=== PATIENT | male | born 1985 | race Caucasian/White ===

== ENCOUNTER 2020-03-13 16:46 | Emergency (ER) | payer BC, OTHER ==
[~2020-03-13] VITALS: Ht 190.5 cm; Wt 152.0 kg
[2020-03-13] MEDS ORDERED: AZITHROMYCIN500 MG PO (18:36)
--- NOTE | 2020-03-13 18:38 | Emergency Department Note ---
History of Present Illnes History of Present Illness Chief Complaint: newants covid test because exposed 1 week ago to coworker who is covid + History of Present Illness This is a 34 year old male. was doing well prior to this. +st x3 days. 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 Any updates have been documented here. Past Medical History Recent Fever: No Clinical Suspicion of Infectio: No New/Unexplained Change in Ment: No Past Medical History: None Past Surgical History: None Social History Smoking Cessation: Never Smoker Alcohol Use: Occasional Any Illegal Drug Use: No TB Exposure/Symptoms: No Physically hurt or threatened: No Other Any Pre-Existing Lines (PICC,: No Is patient up to date on immun: Yes Last Flu: No Last Pneumovax: No Review of Systems Review of Systems Constitutional: Reports no symptoms EENTM: Reports as per HPI, Reports throat pain Cardiovascular: Reports no symptoms Respiratory: Reports no symptoms Gastrointestinal: Reports no symptoms Genitourinary: Reports no symptoms Musculoskeletal: Reports no symptoms Integumentary: Reports no symptoms Neurological: Reports no symptoms Psychological: Reports no symptoms Endocrine: Reports no symptoms Hematological/Lymphatic: Reports no symptoms Review of other systems: All other systems negative Physical Exam Related Data Allergies: Coded Allergies: No Known Allergies (Unverified , 03/13/20) Triage Vital Signs Vital Signs Date Time Temp Pulse Resp B/P (MAP) Pulse Ox O2 Delivery O2 Flow Rate FiO2 03/13/20 17:16 97.1 76 20 148/97 98 Vital signs reviewed: Yes Physical Exam CONSTITUTIONAL Constitutional: Present well-developed, Present well-nourished HENT HENT: Present normocephalic, Present atraumatic, Present nose normal, Present erythema HENT L/R: Present left ext ear normal, Present right ext ear normal EYES Eyes: Reports PERRL, Reports conjunctivae normal NECK Neck: Present ROM normal PULMONARY Pulmonary: Present effort normal, Present breath sounds normal CARDIOVASCULAR Cardiovascular: Present regular rhythm, Present heart sounds normal, Present capillary refill normal, Present normal rate GASTROINTESTINAL Abdominal: Present soft, Present nontender, Present bowel sounds normal GENITOURINARY Genitourinary: Present exam deferred SKIN Skin: Present warm, Present dry MUSCULOSKELETAL Musculoskeletal: Present ROM normal NEUROLOGICAL Neurological: Present alert, Present oriented x 3, Present no gross motor or sensory deficits PSYCHOLOGICAL Psychological: Present mood/affect normal, Present judgement normal Assessment & Plan Medical Decision Making MDM take rx Reassessment Reassessment covid pending Assessment & Plan Final Impression: (1) Acute pharyngitis Depart Disposition: HOME, SELF-CARE Last Vital Signs Date Time Temp Pulse Resp B/P (MAP) Pulse Ox O2 Delivery O2 Flow Rate FiO2 03/13/20 17:16 97.1 76 20 148/97 98 Home Meds Active Scripts Azithromycin (AZITHROMYCIN) 500 Mg Tablet, 500 MG PO DAILY, #5 TAB Prov:HUNTER ESPARZA 03/13/20 HUNTER ESPARZA Mar 13, 2020 18:38
== END 2020-03-13 19:22 | disposition home or self-care (01) ==
LOC: FSED 16:46
DX: J02.9 Acute pharyngitis, unspecified (principal); Z11.59 Encounter for screening for other viral diseases
CPT/HCPCS: 87635; 99283